=== PATIENT | male | born 1980 | race Two or more races ===

== ENCOUNTER 2019-07-01 19:15 | Emergency (ER) | payer BC ==
[2019-07-01 19:57] VITALS: BP 154/87
--- NOTE | 2019-07-01 20:08 | UC ---
Respiratory Complaint HPI - HPI Summary HPI Summary: Pt presents with c/o nasal congestion, ST, cough, sneezing, body aches X 4 days. 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 Symptoms began prior to visiting [facility] the weekend. Pt was recently visiting [facility] an dis concerned for COVID 19. - History of Current Complaint Chief Complaint: UCGeneralIllness Stated Complaint: COUGH, SINUS COMPLAINT Time Seen by Provider: 07/01/19 19:55 Hx Obtained From: Patient Onset/Duration: Sudden Onset, Lasting Days, Still Present Timing: Intermittent Episodes Severity Initially: Mild Severity Currently: Mild Pain Intensity: 0 Character: Cough: Nonproductive Aggravating Factors: Deep Breaths, Recumbent Position Associated Signs And Symptoms: Positive: URI, Nasal Congestion - Risk Factors Pulmonary Embolism Risk Factors: Recent Travel Cardiac Risk Factors: Negative Pseudomonas Risk Factors: Negative Tuberculosis Risk Factors: Negative - Allergies/Home Medications Allergies/Adverse Reactions: Allergies Allergy/AdvReac Type Severity Reaction Status Date / Time No Known Allergies Allergy Verified 07/01/19 19:46 Home Medications: Home Medications Fexofenadine/Pseudoephedrine [Glenis-D 24 Hour Tablet] 1 each PO DAILY #7 tab.er.24h 07/01/19 [Rx] Ibuprofen TAB* [Advil TAB*] 200 mg PO Q6H PRN 07/01/19 [History Confirmed ] Oxymetazoline 0.05% NASAL SPR* [Afrin 0.05% NASAL SPRAY*] 1 spray NASAL Q12H 4 Days #1 btl 07/01/19 [Rx] PMH/Surg Hx/FS Hx/Imm Hx Previously Healthy: Yes Respiratory History: Asthma - as a child - Surgical History Surgical History: Yes Surgery Procedure, Year, and Place: Cholecystectomy - Family History Known Family History: Positive: Cardiac Disease - Social History Occupation: Employed Full-time Lives: With Family Alcohol Use: None Substance Use Type: None Smoking Status (MU): Never Smoked Tobacco Have You Smoked in the Last Year: No - Immunization History Vaccination Up to Date: No Review of Systems All Other Systems Reviewed And Are Negative: Yes Constitutional: Positive: Fatigue Skin: Positive: Negative Eyes: Positive: Negative ENT: Positive: Sinus Congestion Respiratory: Positive: Cough Cardiovascular: Positive: Negative Gastrointestinal: Positive: Negative Genitourinary: Positive: Negative Motor: Positive: Negative Neurovascular: Positive: Negative Musculoskeletal: Positive: Myalgia Neurological/Mental Status: Positive: Negative Psychological: Positive: Negative Is Patient Immunocompromised?: No Physical Exam Triage Information Reviewed: Yes Appearance: Well-Appearing Vital Signs: Initial Vital Signs Temp 98.1 F 07/01/19 19:51 Pulse 72 07/01/19 19:51 Resp 20 07/01/19 19:51 BP 154/87 07/01/19 19:51 Pulse Ox 99 07/01/19 19:51 Vital Signs Reviewed: Yes Eye Exam: Normal ENT: Positive: Nasal congestion, Tonsillar swelling Dental Exam: Normal Neck exam: Normal Respiratory: Positive: Normal breath sounds, No respiratory distress Cardiovascular Exam: Normal Musculoskeletal Exam: Normal Neurological Exam: Normal Psychological Exam: Normal Skin Exam: Normal Respiratory Course/Dx - Course Course Of Treatment: Pt did not have fever, SOB, cough, or adventitious or decreased respiratory sounds - Differential Dx/Diagnosis Differential Diagnosis/HQI/PQRI: Influenza, Other - COVID 19 Provider Diagnosis: Viral syndrome Discharge ED - Sign-Out/Discharge Documenting (check all that apply): Patient Departure All imaging exams completed and their final reports reviewed: No Studies - Discharge Plan Condition: Stable Disposition: HOME Prescriptions: Fexofenadine/Pseudoephedrine [Glenis-D 24 Hour Tablet] 1 each PO DAILY #7 tab.er.24h Oxymetazoline 0.05% NASAL SPR* [Afrin 0.05% NASAL SPRAY*] 1 spray NASAL Q12H 4 Days #1 btl Patient Education Materials: Viral Syndrome (ED) Forms: *Gen. Provider Communication Referrals: Jennifer Alonso PA [Primary Care Provider] - If Needed - Billing Disposition and Condition Condition: STABLE Disposition: Home - Attestation Statements Provider Attestation: I was available for consultation for this patient. I did not evaluate the patient or participate in any medical decision making or disposition decisions unless I am specifically named in the chart as having consulted on the patient. If I have consulted on the patient, please see my own ED note on the patient encounter. Lorene Baer MD
== END 2019-07-01 20:17 | disposition home or self-care (01) ==
LOC: UCCORT 19:15
DX: B34.9 Viral infection, unspecified (principal); J45.909 Unspecified asthma, uncomplicated
CPT/HCPCS: 99212; G0463